=== PATIENT | female | born 1945 | race Caucasian/White ===

== ENCOUNTER 2018-06-26 12:02 | Inpatient (IN) ==
[2018-06-19 17:47] LABS: Appearance,Urine HAZY; Bilirubin,Urine NEG (NEG); Color,Urine YELLOW; Glucose,Urine (UA) NEGATIVE (NEG); Leukocyte Esterase,Urine NEG /uL (NEG); Protein,Urine NEG (NEG); Specific Gravity,Urine 1.015 (1.000-1.035); Urine Blood NEG mg/dL (<0.03); Urobilinogen,Urine NEG (NEG)
[2018-06-19 18:20] LABS: Blood Urea Nitrogen 18 mg/dl (8-23)
[2018-06-19 18:32] LABS: Basophils # (Auto) 0 K/mcL (0.0-0.3); Basophils % (Auto) 0.3 % (0.0-2.0); Eosinophils # (Auto) 0 K/mcL (0.0-0.7); Eosinophils % (Auto) 0.3 % (0.0-7.0); Granulocytes % (Auto) 49.4 % (38.0-78.0); Lymphocytes # (Auto) 1.6 K/mcL (1.5-4.8); Lymphocytes % (Auto) 39.8 % (15.5-49.0); Mean Cell Volume 90.9 fL (80.0-100.0); Mean Corpuscular HGB Conc 33.6 g/dL (31.0-36.0); Mean Corpuscular Hemoglobin 30.5 pg (26.0-34.0); Monocytes # (Auto) 0.4 K/mcL (0.1-0.9); Monocytes % (Auto) 10.2 % (1.0-12.0); Platelet Count 207 K/mcL (140-440); RBC 4.19 M/mcL (4.00-5.20); Red Cell Distribution Width 14.1 % (11.5-14.5)
[~2018-06-26 12:02] MED LIST: 0.9 % SODIUM CHLORIDE 9 ML, KETOROLAC 30 MG, ROPIVACAINE HCL/PF 49.5 ML, EPINEPHrine 0.... IJ SCH; CELECOXIB 200 MG CAPSULE PO SCH; PREGABALIN 75 MG CAPSULE PO SCH; ceFAZolin 1 GM VIAL IV SCH; oxyCODONE 10 MG TAB.ER.12H PO SCH
[2018-06-26] MEDS ORDERED: ONDANSETRON 4 MG/2 ML VIAL IV ONE (16:25)
[2018-06-26] MEDS ORDERED: PROPOFOL 200 MG/20 ML VIAL IV ONE (16:25)
[2018-06-26] MEDS ORDERED: MIDAZOLAM 5 MG/5 ML VIAL IV ONE (16:25)
[2018-06-26] MEDS ORDERED: LIDOCAINE HCL/PF 100 MG/5 ML SYRINGE IV ONE (16:25)
[2018-06-26] MEDS ORDERED: TRANEXAMIC ACID 1,000 MG/10 ML VIAL IV ONE ×3 (16:25→18:35)
[2018-06-26] MEDS ORDERED: ROPIVACAINE HCL/PF 20 ML VIAL IJ ONE (16:25)
[2018-06-26] MEDS ORDERED: ePHEDrine 50 MG/ML AMPUL IV ONE (16:25)
[2018-06-26] MEDS ORDERED: DEXAMETHASONE 10 MG/ML VIAL IV ONE (16:25)
[2018-06-26] MEDS ORDERED: GENTAMICIN SULFATE 800 MG/20 ML VIAL IR ONE (17:10)
[2018-06-26] MEDS ORDERED: fentaNYL 100 MCG/2 ML VIAL IV PRN (17:44)
[2018-06-26] MEDS ORDERED: ONDANSETRON 4 MG/2 ML VIAL IV PRN ×2 (17:44→18:17)
[2018-06-26] MEDS ORDERED: IPRATROPIUM/ALBUTEROL 3 ML AMPUL.NEB NEB PRN (17:44)
[2018-06-26] MEDS ORDERED: diphenhydrAMINE 50 MG/ML VIAL IV PRN (17:44)
[2018-06-26] MEDS ORDERED: ACETAMINOPHEN 1,000 MG/100 ML BOTTLE IV ONE (17:44)
[2018-06-26] MEDS ORDERED: LACTATED RINGERS 250 ML IV PRN (17:44)
[2018-06-26] MEDS ORDERED: FLUMAZENIL 0.1 MG/ML ML IV PRN (17:44)
[2018-06-26] MEDS ORDERED: BENZOCAINE/MENTHOL 1 LOZENGE PO PRN ×2 (17:44→18:17)
[2018-06-26] MEDS ORDERED: MEPERIDINE 25 MG/ML SYRINGE IV PRN (17:44)
[2018-06-26] MEDS ORDERED: NALOXONE HCL 0.4 MG/ML VIAL IV PRN (17:44)
[2018-06-26] MEDS ORDERED: PROMETHAZINE 25 MG/ML VIAL IV PRN (17:44)
[2018-06-26] MEDS ORDERED: LACTATED RINGERS 1,000 ML IV SCH (17:45)
[2018-06-26] MEDS ORDERED: ONDANSETRON ODT 4 MG TABLET SL PRN (18:17)
[2018-06-26] MEDS ORDERED: MAGNESIUM HYDROXIDE 30 ML ORAL.SUSP PO PRN (18:17)
[2018-06-26] MEDS ORDERED: FLEETS ADULT ENEMA PR PRN (18:17)
[2018-06-26] MEDS ORDERED: ACETAMINOPHEN 325 MG TABLET PO PRN (18:17)
[2018-06-26] MEDS ORDERED: POLYETHYLENE GLYCOL 3350 17 GM PACKET PO PRN (18:17)
[2018-06-26] MEDS ORDERED: METHOCARBAMOL 750 MG TABLET PO PRN (18:17)
[2018-06-26] MEDS ORDERED: BISACODYL 10 MG SUPP.RECT PR PRN (18:17)
--- NOTE | 2018-06-26 18:17 | Brief Operative Note ---
Date of procedure: 06/26/18 Pre-op diagnosis: left knee oa Post-op diagnosis: same Procedure: left total knee arthroplasty Grafts/Implants: Yes Anesthesia: spinal Complications: none Surgeon: David Reza Credit Risk Associate: Rosi Pleitez Estimated blood loss (cc): 200 Tourniquet Time (Minutes): 69 Specimens Removed/Pathology: none sent Condition: stable Disposition: PACU
--- NOTE | 2018-06-26 19:27 | Operative Note ---
DATE OF OPERATION: 06/26/2018 PREOPERATIVE DIAGNOSIS: Degenerative joint disease, left knee. POSTOPERATIVE DIAGNOSIS: Degenerative joint disease, left knee. PROCEDURE: Left total knee arthroplasty. SURGEON: Kandy Reza M.D. NURSE TECHNICIAN SURGEON: ANGELA Lenz ANESTHESIA: Spinal with LMA assist. ESTIMATED BLOOD LOSS: 200 mL COMPLICATIONS: None noted. SPECIMENS REMOVED: None. DRAINS: None. TOURNIQUET TIME: 69 minutes at 300 mmHg IMPLANTS: DePuy CMW2 bone cement 20 grams times 4, DePuy Attune femoral posterior stabilized size 7 left cemented, DePuy Attune tibial insert fixed bearing posterior stabilized size 7, 7 mm AOX, DePuy Attune tibial based fixed bearing size 6 cemented, DePuy Attune patella medialized dome 35 mm cemented AOX. INDICATIONS: Ms. Clark has had a long-standing history of worsening pain in the knee that has failed conservative treatment. Radiographs have confirmed advanced degenerative joint disease. After a long discussion about treatment options, the patient elected to proceed with a knee arthroplasty. The risks and benefits were discussed with the patient in detail including, but not limited to, the risks of anesthesia, problems with the heart or lungs related to anesthesia, infection, compromise or injury to the nerves and blood vessels, deep venous thrombosis, pulmonary embolism, pneumonia, continued pain after surgery, worsening pain or symptoms after surgery, swelling, loss of motion, instability, leg length discrepancy, and need for repeat surgery. DESCRIPTION OF PROCEDURE: The patient was seen in the pre-anesthesia waiting room where all questions were answered and the correct side and site were identified and marked. The patient was transferred to the operating room and administered the anesthetic and given pre-operative antibiotics. A time-out was then called. The extremity was prepped and draped, exsanguinated, and the tourniquet was inflated to 300 mmHg. A midline skin incision was then made with a standard medial parapatellar arthrotomy. Debridement of the menisci, ACL, and PCL was performed followed by balancing releases in the medial lateral plane. We then established intramedullary access to both the femur and tibia in a standard fashion. The femoral guide jailene was initially placed with the distal femoral guide, pinned into place, and the distal femoral cut was performed and checked with a flat plate. We then turned our attention to the tibia. The intramedullary guide was placed with the proximal tibial cutting block. The block was appropriately positioned off the affected side, varus and valgus was checked with the extra-medullary guide, and the block was pinned into place. The proximal tibial cut was performed and the tibia was prepared for the tibial implant with appropriate rotation. The tibia, femur, and posterior compartment were debrided of osteophytes, loose bodies, and meniscal fragments We then used the gap balancing technique to balance extension with the first two cuts and good balancing was obtained with a 10 millimeter gap block. We turned our attention back to the femur and used the referencing block and implant to size appropriately. Using the gap balancing technique for the flexion space we set our rotation of the femur off the tibial cut. Anesthesia gave the patient 1 gram of Tranexamic Acid via an intravenous route. We placed the 4 in 1 cutting block and made anterior, posterior, and chamfer cuts. Box plasty cuts were then made in a standard fashion for the posterior stabilized prosthesis. We then completed osteophyte release and posterior capsule release from the posterior compartment. Trials were placed and we chose the polyethylene insert thickness that provided the best stability in all planes. With the trials in place, we did a measured resection for a resurfacing patella. We sized the patella and placed the patella trial and performed a lateral facetectomy with the saw and rongeur. Good tracking was obtained. We removed all trials, irrigated and dried all cut surfaces. We cemented the components into place including tibia, femur and patella. We placed a trial liner and held the knee in full extension with the patella compressed while the cement cured. We then removed all excess cement and placed the final polyethylene tibiofemoral component. Irrigation with 3 liters of antibiotic saline was then performed using jet-lavage. We let the tourniquet down and coagulated bleeding vessels. We injected a 100 cubic centimeter volume including Ropivacaine 49.25 cubic centimeters at 5 milligrams per cubic centimeter, Ketorolac 30 milligrams, and Epinephrine 0.5 milligrams into 100 cubic centimeters volume of normal saline. We closed the retinaculum with #2 Stratafix and 0 Vicryl. We closed the subcutaneous tissue and skin in layers out to Dermabond on the skin. A sterile pressure dressing was applied. All needle and sponge counts were correct. The patient was transferred to the recovery room in stable condition. AMADA:in Job ID: [id number] Doc ID: [id number] Kandy Reza MD
[2018-06-26] MEDS: 0.9 % SODIUM CHLORIDE 1,000 ML IV SCH (20:30)
[2018-06-26] MEDS: HYDROcodone/APAP 10/325MG TABLET PO PRN (20:47)
[2018-06-26] MEDS: ASPIRIN 325 MG ENTERIC COATED TABLET PO SCH (20:47)
[2018-06-26] MEDS: SENNOSIDES 1 TABLET PO SCH (20:48)
[2018-06-26] MEDS: 0.9 % SODIUM CHLORIDE 10 ML SYRINGE IV SCH (20:48)
[2018-06-26] MEDS: DOCUSATE SODIUM 100 MG CAPSULE PO SCH (20:48)
[2018-06-26] MEDS: ceFAZolin 1 GM VIAL IV SCH (21:56)
[2018-06-27] MEDS: KETOROLAC 30 MG/ML VIAL IV SCH ×5 (00:28→23:47)
[2018-06-27] MEDS: 0.9 % SODIUM CHLORIDE 1,000 ML IV SCH ×2 (04:32→11:08)
[2018-06-27] MEDS: ceFAZolin 1 GM VIAL IV SCH (05:12)
[2018-06-27] MEDS: HYDROcodone/APAP 10/325MG TABLET PO PRN ×4 (05:12→21:51)
[2018-06-27] MEDS: 0.9 % SODIUM CHLORIDE 10 ML SYRINGE IV SCH ×3 (05:16→22:18)
--- NOTE | 2018-06-27 07:51 | XRay Report ---
HISTORY: Postop knee replacement There is a well positioned total knee prosthesis. There is no fracture or abnormal soft tissue calcification. IMPRESSION: Well-positioned left knee prosthesis Interpreted and Authenticated by: Charan Martino 06/27/18
--- NOTE | 2018-06-27 07:55 | Orthopedic Progress Note ---
Subjective Patient information: Note initiated : 06/27/18 at 7:54 am Service Date, if different from initiated Date: [] Patient: Lima Clark 73 y/o F admitted on 06/26/18 for Left Total Knee Arthroplasty. Chief Complaint: [] Interval history: doing well. no complaints Objective Vital signs: Vital Signs Temp Pulse Pulse Resp BP Pulse Ox 06/27/18 07:28 99 F 20 113/64 96 06/27/18 06:00 68 06/27/18 04:00 97.7 F 68 16 116/62 97 06/27/18 00:00 98.1 F 56 L 16 105/57 99 06/26/18 21:28 59 L 14 128/62 98 06/26/18 20:58 135/59 06/26/18 20:28 68 135/72 97 06/26/18 20:19 74 16 96 06/26/18 20:14 73 135/68 94 06/26/18 19:59 70 130/60 98 06/26/18 19:43 72 138/67 100 06/26/18 19:28 97.5 F 73 16 144/75 96 06/26/18 19:15 97.5 F 68 13 140/78 100 06/26/18 19:05 97.6 F 66 16 142/72 96 06/26/18 18:55 97.0 F 69 12 151/71 100 06/26/18 18:50 65 15 150/65 100 06/26/18 18:45 68 15 143/69 100 06/26/18 18:40 86 16 150/70 99 06/26/18 18:37 98.1 F 70 16 152/73 100 06/26/18 18:28 97.5 F 73 16 144/75 96 06/26/18 12:02 98.4 F 68 16 142/75 98 Intake and Output 06/26/18 06/27/18 06/27/18 21:59 05:59 13:59 Intake Total 1600 / 1600 800 / 800 Output Total 650 / 650 Balance 1600 / 1600 150 / 150 Intake: IV 100 / 100 Oral 800 / 800 IV - Manual Only 1500 / 1500 Output: Void Amount 650 / 650 Other: Urine Appearance Clear Clear Urine Color Bright Yellow Dark Yellow Urine Odor Normal Strong # Voids 500 Weight 176 lb Intake & Output: Intake & Output 06/26/18 06/27/18 06/27/18 21:59 05:59 13:59 Intake Total 1600 / 1600 800 / 800 Output Total 650 / 650 Balance 1600 / 1600 150 / 150 Weight 176 lb Intake: IV 100 / 100 Oral 800 / 800 IV - Manual Only 1500 / 1500 Output: Void Amount 650 / 650 Other: Urine Appearance Clear Clear Urine Color Bright Yellow Dark Yellow Urine Odor Normal Strong # Voids 500 Incision: Yes healing Incision clean and dry: Yes Dressing: Yes clean, Yes dry, Yes intact Weight bearing status: full Neurological exam IM: Yes alert, Yes normal gait, Yes oriented X3, Yes motor sensory intact, Yes neurovascular intact Extremities exam IM: No calf tenderness, Yes Foot pink and warm, Yes neurovascular intact - Labs CBC & BMP: 06/27/18 04:10 06/19/18 16:10 Labs: Orthopedic Labs 06/19/18 16:10 PT 12.5 INR 0.9 06/27/18 06/19/18 04:10 16:10 Hgb 10.7 L 12.8 Hct 31.6 L 38.1 Assessment and Plan (1) Knee osteoarthritis pod 1 s/p tka wbat pain control dvt prophylaxis d/c planning - home tomorrow Status: Acute
--- NOTE | 2018-06-27 07:56 | Discharge Summary ---
Ortho Discharge - TKA - Patient Instructions Diet: Regular Diet Activity: activity as tolerated, ambulate with assistive device, weight bearing as tolerated Total Knee Protocol: For Total Knee: Start ROM GLORIA with stationary bike or rocking chair. Work on gaining full extension of knee. Posterior dislocation precautions provided. Hip abductor strengthening and gait training instructions provided. Apply Cryocuff as instructed. Dressing Care: May shower in 2 days, Other (keep dermabond in place, covered) - Problem Maintenance (1) Knee osteoarthritis Status: Acute - Follow Up Plan Follow Up Appointments: Rosi Pleitez PA-C [Physician Senior [employer] Database Administrator] - 07/11/18 10:20 am Disposition: Home, Self-Care Prognosis: Good Rehab Potential: Good I certify that the patient requires SNF services: No Overall status at discharge: patient is progressing back to baseline
[2018-06-27] MEDS: ASPIRIN 325 MG ENTERIC COATED TABLET PO SCH ×2 (08:24→21:51)
[2018-06-27] MEDS: DOCUSATE SODIUM 100 MG CAPSULE PO SCH ×2 (08:24→21:51)
[2018-06-27] MEDS: SENNOSIDES 1 TABLET PO SCH (21:51)
[2018-06-28] MEDS: HYDROcodone/APAP 10/325MG TABLET PO PRN ×2 (03:35→08:47)
[2018-06-28] MEDS: KETOROLAC 30 MG/ML VIAL IV SCH ×2 (05:47→11:45)
[2018-06-28] MEDS: 0.9 % SODIUM CHLORIDE 10 ML SYRINGE IV SCH (05:47)
[2018-06-28] MEDS: DOCUSATE SODIUM 100 MG CAPSULE PO SCH (08:47)
[2018-06-28] MEDS: ASPIRIN 325 MG ENTERIC COATED TABLET PO SCH (08:47)
--- NOTE | 2018-06-28 08:47 | Orthopedic Progress Note ---
Subjective Patient information: Note initiated : 06/28/18 at 8:46 am Service Date, if different from initiated Date: [] Patient: Lima Clark 73 y/o F admitted on 06/26/18 for Left Total Knee Arthroplasty. Chief Complaint: [] Interval history: doing well. no complaints Objective Vital signs: Vital Signs Temp Pulse Resp BP Pulse Ox 06/28/18 07:05 75 16 94 06/28/18 06:44 97.3 F 76 18 91/53 94 06/28/18 04:00 97.7 F 74 18 116/58 96 06/28/18 00:00 97.8 F 72 18 105/56 94 06/27/18 20:00 97.9 F 78 18 114/56 97 06/27/18 15:48 98.9 F 20 90/39 96 06/27/18 12:03 98.7 F 20 109/58 94 Intake and Output 06/27/18 06/28/18 06/28/18 21:59 05:59 13:59 Intake Total 240 / 240 500 / 500 Output Total 650 / 650 1250 / 1250 Balance -410 / -410 -750 / -750 Intake: Oral 240 / 240 500 / 500 Output: Void Amount 650 / 650 1250 / 1250 Other: Meal Dinner Percent of Meal Consumed 100% Feeding Ability Independent Weight 175 lb 8 oz Intake & Output: Intake & Output 06/27/18 06/28/18 06/28/18 21:59 05:59 13:59 Intake Total 240 / 240 500 / 500 Output Total 650 / 650 1250 / 1250 Balance -410 / -410 -750 / -750 Weight 175 lb 8 oz Intake: Oral 240 / 240 500 / 500 Output: Void Amount 650 / 650 1250 / 1250 Other: Meal Dinner Percent of Meal Consumed 100% Feeding Ability Independent Incision: Yes healing Incision clean and dry: Yes Dressing: Yes clean, Yes dry, Yes intact Weight bearing status: full Neurological exam IM: Yes alert, Yes oriented X3, Yes motor sensory intact, Yes neurovascular intact Extremities exam IM: No calf tenderness, Yes Foot pink and warm, Yes neurovascular intact - Labs CBC & BMP: 06/28/18 04:27 06/19/18 16:10 Labs: Orthopedic Labs 06/19/18 16:10 PT 12.5 INR 0.9 06/28/18 06/27/1806/19/18 04:27 04:10 16:10 Hgb 8.2 L 10.7 L 12.8 Hct 24.3 L 31.6 L 38.1 Assessment and Plan (1) Knee osteoarthritis pod 2 s/p tka wbat pain control dvt prophylaxis d/c planning - home today Status: Acute
== END 2018-06-28 12:10 | disposition home or self-care (01) | DRG 470 ==
LOC: MEDSUR 12:02
PROVIDERS: ADMIT Orthopaedic Surgery Sports Medicine; ATTEND Orthopaedic Surgery Sports Medicine
CPT/HCPCS: 62322; 97161; 97165; C1776; J0131; J0690; J1100; J1580; J1885; J2001; J2250; J2405; J2795; J3010; J7120